=== PATIENT | male | born 2000 | race Caucasian/White ===

== ENCOUNTER 2025-03-28 00:09 | Emergency (ER) | payer OTHER ==
[~2025-03-28] VITALS: Ht 177.8 cm; Wt 73.0 kg
[2025-03-28 00:28] VITALS: BP 145/93; PULSE 78; RESP 18; TEMP 36.8; O2SAT 100
== END 2025-03-28 01:13 | disposition home or self-care (01) ==
LOC: ER 00:09
DX: J02.9 Acute pharyngitis, unspecified (principal); F15.10 Other stimulant abuse, uncomplicated
CPT/HCPCS: 99283